=== PATIENT | female | born 1950 | race Caucasian/White ===

== ENCOUNTER 2017-01-28 15:56 | Outpatient (CLI) | END 2017-01-28 15:57 | disposition home or self-care (01) | LOC: AMBL 15:56 | PROVIDERS: ATTEND Internal Medicine Geriatric Medicine | DX: R11.2 Nausea with vomiting, unspecified (principal) ==

== ENCOUNTER 2018-07-06 12:04 | Outpatient (CLI) | END 2018-07-06 12:28 | disposition short-term general hospital (02) | LOC: AMBL 12:04 | PROVIDERS: ATTEND Internal Medicine Geriatric Medicine | DX: R06.03 Acute respiratory distress (principal); R11.0 Nausea ==